=== PATIENT | male | born 1975 | race Caucasian/White ===

== ENCOUNTER 2020-08-05 16:35 | Emergency (ER) | payer OTHER, SELFPAY ==
--- NOTE | 2020-08-05 16:43 | ED.EAR ---
HPI - Ear Problem General Chief complaint: Ear Stated complaint: left ear pain Time Seen by Provider: 08/05/20 16:43 Source: patient and RN notes reviewed History of Present Illness HPI Narrative: Patient is a 44-year-old male who presents the urgent care with complaints of left ear pain since last Wednesday. Patient states he believed it was due to wax impaction and he was using peroxide and Debrox [id number] without much relief. Patient states that he has been constantly pulling and tugging at the ear. Denies of any other upper respiratory complaints. Denies of fever, chills, nausea, vomiting. No other acute complaints. No acute distress noted. Patient aware of the plan of care. Some parts of this dictation were generated by voice recognition software and may contain typographical and/or grammatical inaccuracies. Related Data Allergies Allergy/AdvReac Type Severity Reaction Status Date / Time No Known Allergies Allergy Verified 08/05/20 16:52 Review of Systems Review of Systems: Narrative: CONSTITUTIONAL: Denies fever, chills, or sweats. EYES: Denies visual changes, redness, or discharge. ENT: Reports of left otalgia CARDIOVASCULAR: Denies chest pain, palpitations, or edema. RESPIRATORY: Denies cough or dyspnea. GASTROINTESTINAL: Denies abdominal pain, nausea, vomiting, or diarrhea. GENITOURINARY: Denies dysuria or hematuria. SKIN: Denies rash or itching. MUSCULOSKELETAL: Denies back pain, joint pain, or myalgia. NEUROLOGIC: Denies headache, numbness, or weakness. All other systems reviewed are negative, except as documented in HPI. PMFSH Comments At the time of my signature, I reviewed and agree with the nursing past medical, surgical, social, and family history. There is no relevant family history pertinent to the patient complaint. Exam Narrative: Exam Narrative: GENERAL: This is a well-nourished, well-developed patient, in no apparent distress. HEAD: normocephalic, atraumatic. EYES: PERRL. Sclera clear/white. Vision is grossly intact. EARS: External ears normal, mild edema and erythema noted to left auditory canal without drainage. Notable cerumen to the left canal. Right auditory canal clear and without drainage, TMs normal without perforation. Hearing grossly intact. NOSE: External nose normal with no obvious nasal discharge, nares without redness, no rhinorrhea. THROAT: Mucous membranes moist NECK: Neck supple SKIN: warm, intact with no suspicious lesions or rash, good texture and turgor. NEURO: awake, alert, and oriented to person, place and time. There were no obvious focal neurologic abnormalities. EXTREMITIES: No clubbing, cyanosis, or edema. Course Vital Signs Vital signs: Vital Signs Temperature 98.9 F 08/05/20 16:47 Pulse Rate 95 08/05/20 16:47 Respiratory Rate 16 08/05/20 16:47 Blood Pressure 189/96 H 08/05/20 16:47 Pulse Oximetry 98 08/05/20 16:47 Temperature 98.9 F 08/05/20 16:53 Pulse Rate 95 08/05/20 16:53 Respiratory Rate 16 08/05/20 16:53 Blood Pressure 189/96 H 08/05/20 16:53 Pulse Oximetry 98 08/05/20 16:53 Reviewed-patient is informed that they may have pre-hypertension or hypertension based on a blood pressure reading in the department. I recommend the patient call the primary care provider listed on their discharge instructions or a physician of their choice this week to arrange follow-up for further evaluation of possible pre-hypertension or hypertension. Medical Decision Making MDM Narrative Medical decision making narrative: Advised the patient to stop using the peroxide and Debrox to the left ear. Use warm compress for comfort and to initiate cerumen. Use prescription drops to the affected ear as directed. May use Tylenol/ibuprofen as needed for pain. Try to refrain from constant rubbing of the ear. Do not submerge your head underwater. Follow-up with your PCP within 2 to 5 days or for worsening symptoms or failure to improve. Differential Zofia
[2020-08-05 16:47] VITALS: BP 189/96; PULSE 95; RESP 16; TEMP 37.2; O2SAT 98
[2020-08-05 16:53] VITALS: BP 189/96; PULSE 95; RESP 16; TEMP 37.2; O2SAT 98
== END 2020-08-05 17:04 | disposition home or self-care (01) ==
PROVIDERS: Emergency Provider Nurse Practitioner Family
DX: H60.92 Unspecified otitis externa, left ear (principal)
CPT/HCPCS: 99213; G0463